=== PATIENT | female | born 1970 | race Caucasian/White ===

== ENCOUNTER 2019-04-25 21:24 | Emergency (ER) | payer MEDICAID, OTHER ==
[~2019-04-25] VITALS: Ht 162.6 cm; Wt 84.4 kg
[2019-04-25] MEDS: PLEASE ENTER ALLERGIES MC SCH ×2 (22:00→22:52)
[2019-04-25] MEDS ORDERED: KETOROLAC 30 MG/1 ML IM ONE (22:00)
[2019-04-25 22:06] LABS: MEAN CORPUSCULAR HEMOGLOBIN 30.4 pg (27.0-34.8); MEAN CORPUSCULAR HGB CONC 33.7 g/dL (32.4-35.8); MEAN CORPUSCULAR VOLUME 90.1 fL (80-100); MEAN PLATELET VOLUME 7.7 fL (7.4-10.4); PLATELET COUNT 223 x10^3/uL (130-400); RED BLOOD COUNT 4.96 x10^6/uL (3.82-5.3); RED CELL DISTRIBUTION WIDTH 12.9 % (9.6-15.2)
[2019-04-25 22:09] LABS: CULTURE INDICATED? YES; MICROSCOPIC INDICATED
[2019-04-25 22:12] LABS: HCG UR SG 1.025 (1.003-1.030)
[2019-04-25 22:19] LABS: ALANINE AMINOTRANSFERASE 23 U/L (12-78); ALBUMIN 3.8 g/dL (3.4-5.0); ANION GAP 9 mmol/L (5-15); CHLORIDE 104 mmol/L (98-107); CREATININE 0.86 mg/dL (0.55-1.02)
[2019-04-25 22:21] LABS: ALKALINE PHOSPHATASE 127 U/L (45-117); BILIRUBIN,TOTAL 1.2 mg/dL (0.2-1.0); TOTAL PROTEIN 8.1 g/dL (6.4-8.2)
[2019-04-25 22:31] LABS: BASOPHILS # (AUTO) 0.01 x10^3/uL (0-0.1); BASOPHILS % (AUTO) 0 % (0-1); EOSINOPHILS # (AUTO) 0.02 x10^3/uL (0-0.4); EOSINOPHILS % (AUTO) 0 % (1-7); LYMPHOCYTES % (AUTO) 3 % (22-44); MD SCAN; MONOCYTES # (AUTO) 0.12 x10^3/uL (0.2-0.8); MONOCYTES % (AUTO) 1 % (2-9); NEUTROPHILS % (AUTO) 96 % (42-75)
--- NOTE | 2019-04-25 22:48 | NUR ---
pt to room from lobby
[2019-04-25] MEDS ORDERED: KETOROLAC 60 MG/2 ML ONE (22:49)
[2019-04-25] MEDS ORDERED: CEFTRIAXONE PMX 1GM/50ML 50 ML ONE (23:08)
[2019-04-25] MEDS ORDERED: CEFTRIAXONE PMX 1GM/50ML 50 ML IV ONE (23:30)
[2019-04-25] MEDS ORDERED: SODIUM CHLORIDE 0.9% 1,000ML IVBOLUS ONE (23:30)
[2019-04-26] MEDS: PLEASE ENTER ALLERGIES MC SCH (01:15)
--- NOTE | 2019-04-26 01:35 | NUR ---
rn witnessed provider explain pt test results and how pt should be admited, pt denied and wanted to leave AMA.
[2019-04-26 01:37] VITALS: BP 105/76
== END 2019-04-26 01:40 | disposition left against medical advice (07) ==
LOC: ED 04-26 01:37
DX: A41.9 Sepsis, unspecified organism (principal); R65.20 Severe sepsis without septic shock; N13.2 Hydronephrosis with renal and ureteral calculous obstruction; N10 Acute pyelonephritis
CPT/HCPCS: 36415; 74176; 80053; 81001; 81025; 83605; 83690; 84145; 85025; 87040; 87077; 87086; 96372; 96374; 99291; J0696; J1885; J7030; 87186

== ENCOUNTER 2019-05-01 21:33 | Inpatient (IN) | payer MEDICAID ==
[~2019-05-01] VITALS: Ht 162.6 cm; Wt 82.8 kg
[2019-05-01 22:01] LABS: MICROSCOPIC AUTO
[2019-05-01 22:03] LABS: CULTURE INDICATED? YES
[2019-05-01 23:33] LABS: BASOPHILS # (AUTO) 0.08 x10^3/uL (0-0.1); BASOPHILS % (AUTO) 1 % (0-1); EOSINOPHILS # (AUTO) 0.29 x10^3/uL (0-0.4); EOSINOPHILS % (AUTO) 2 % (1-7); LYMPHOCYTES # (AUTO) 2.52 x10^3/uL (1-3.4); LYMPHOCYTES % (AUTO) 21 % (22-44); MD NO; MEAN CORPUSCULAR HEMOGLOBIN 29.8 pg (27.0-34.8); MEAN CORPUSCULAR HGB CONC 33.5 g/dL (32.4-35.8); MEAN CORPUSCULAR VOLUME 89.1 fL (80-100); MEAN PLATELET VOLUME 7.7 fL (7.4-10.4); MONOCYTES # (AUTO) 0.69 x10^3/uL (0.2-0.8); MONOCYTES % (AUTO) 6 % (2-9); NEUTROPHILS % (AUTO) 70 % (42-75); PLATELET COUNT 286 x10^3/uL (130-400); RED BLOOD COUNT 4.43 x10^6/uL (3.82-5.3); RED CELL DISTRIBUTION WIDTH 12.7 % (9.6-15.2)
[2019-05-01 23:39] LABS: ALANINE AMINOTRANSFERASE 30 U/L (12-78); ALBUMIN 3.4 g/dL (3.4-5.0); ANION GAP 9 mmol/L (5-15); CALCIUM 8.5 mg/dL (8.5-10.1); CHLORIDE 102 mmol/L (98-107); CREATININE 0.79 mg/dL (0.55-1.02)
[2019-05-01 23:41] LABS: ALKALINE PHOSPHATASE 112 U/L (45-117); BILIRUBIN,TOTAL 0.4 mg/dL (0.2-1.0); TOTAL PROTEIN 7.7 g/dL (6.4-8.2)
[2019-05-02] LABS: AMPHETAMINE SCREEN, URINE Negative (Negative); BARBITURATE SCREEN, URINE Negative (Negative); BENZODIAZEPINE SCREEN, URINE Negative (Negative); CANNABINOID SCREEN, URINE Negative (Negative); COCAINE SCREEN, URINE Negative (Negative); METHADONE SCREEN, URINE Negative (Negative); OPIATE SCREEN, URINE Negative (Negative)
[2019-05-02 01:08] LABS: MICROSCOPIC NOT IND
[2019-05-02 01:18] LABS: CULTURE INDICATED? NO
[2019-05-02] MEDS ORDERED: SODIUM CHLORIDE 0.9% 1,000ML IVBOLUS ONE (01:30)
[2019-05-02 03:23] VITALS: BP 124/80
[2019-05-02] MEDS ORDERED: ONDANSETRON 2MG/ML, 2ML IVPush PRN (03:30)
[2019-05-02] MEDS ORDERED: morphine SULFATE 10 MG/ML, 1ML IVPush PRN (03:30)
[2019-05-02] MEDS ORDERED: ACETAMINOPHEN 325 MG TABLET PO PRN (03:30)
[2019-05-02] MEDS: PIPERACILLIN/TAZO/PMX 3.375GM 50 ML IV SCH ×3 (03:45→15:09)
[2019-05-02] MEDS: INSULIN LISPRO 100 UNITS/ML, PEN SQ-INSULIN SCH ×3 (07:00→16:00)
[2019-05-02 07:43] VITALS: BP 95/61
[2019-05-02 15:12] VITALS: BP 110/63
== END 2019-05-02 18:12 | disposition left against medical advice (07) | DRG 872 ==
LOC: ED 22:45 → EDIP 05-02 02:02 → 3N 05-02 03:01
PROVIDERS: ADMIT Internal Medicine; ATTEND Hospitalist
PROC: 0T9B70Z Drainage of Bladder with Drainage Device, Via Natural or Artificial Opening (ICD-10-PCS; principal; 2019-05-02)
DX: A41.9 Sepsis, unspecified organism (principal); N13.6 Pyonephrosis; F17.200 Nicotine dependence, unspecified, uncomplicated; R65.20 Severe sepsis without septic shock; R73.9 Hyperglycemia, unspecified; Z53.29 Procedure and treatment not carried out because of patient's decision for other reasons; Z91.012 Allergy to eggs; Z91.018 Allergy to other foods
CPT/HCPCS: 36415; 76770; 80053; 80307; 81001; 81003; 82962; 83036; 83605; 84145; 85025; 87040; 87086; 99285; G0378; J2543; J7030

== ENCOUNTER → 2019-05-20 | Outpatient (CLI) | payer MEDICAID ==
[~2019-05-20] MED LIST: CEFD300C37 PO
[2019-05-20 11:09] LABS: BASOPHILS # (AUTO) 0.08 x10^3/uL (0-0.1); BASOPHILS % (AUTO) 1 % (0-1); EOSINOPHILS # (AUTO) 0.26 x10^3/uL (0-0.4); EOSINOPHILS % (AUTO) 2 % (1-7); LYMPHOCYTES # (AUTO) 2.16 x10^3/uL (1-3.4); LYMPHOCYTES % (AUTO) 17 % (22-44); MD NO; MEAN CORPUSCULAR HEMOGLOBIN 30.2 pg (27.0-34.8); MEAN CORPUSCULAR HGB CONC 33.4 g/dL (32.4-35.8); MEAN CORPUSCULAR VOLUME 90.2 fL (80-100); MEAN PLATELET VOLUME 7.9 fL (7.4-10.4); MONOCYTES # (AUTO) 0.82 x10^3/uL (0.2-0.8); MONOCYTES % (AUTO) 6 % (2-9); NEUTROPHILS # (AUTO) 9.65 x10^3/uL (1.8-6.8); NEUTROPHILS % (AUTO) 74 % (42-75); PLATELET COUNT 279 x10^3/uL (130-400); RED BLOOD COUNT 4.91 x10^6/uL (3.82-5.3); RED CELL DISTRIBUTION WIDTH 13.4 % (9.6-15.2)
[2019-05-20 11:13] LABS: INTERNATIONAL NORMALIZED RATIO 0.94 (0.93-1.1)
[2019-05-20 11:14] LABS: CALCIUM 8.7 mg/dL (8.5-10.1); CREATININE 1.06 mg/dL (0.55-1.02)
[2019-05-20 11:16] LABS: MICROSCOPIC AUTO
[2019-05-20 11:54] LABS: ANION GAP 9 mmol/L (5-15); CHLORIDE 102 mmol/L (98-107)
== END | disposition home or self-care (01) ==
LOC: STAR 09:34
PROVIDERS: ATTEND Student in an Organized Health Care Education/Training Program
DX: Z01.818 Encounter for other preprocedural examination (principal); N20.0 Calculus of kidney
CPT/HCPCS: 36415; 80048; 81001; 85025; 85610; 85730; 87077; 87086; 87186; 93005

== ENCOUNTER 2019-06-01 12:53 | Day surgery (SDC) | payer MEDICAID ==
[~2019-06-01] VITALS: Ht 162.6 cm; Wt 83.8 kg
[~2019-06-01 12:53] MED LIST changes: +CEFAZOLIN 1,000 MG ONE; +DEXAMETHASONE 4 MG/ML, 1ML ONE; +ONDANSETRON 2MG/ML, 2ML ONE
[2019-06-01 13:20] VITALS: BP 117/81
[2019-06-01] MEDS ORDERED: LACTATED RINGERS 1,000 ML IV SCH (13:22)
[2019-06-01 13:53] LABS: AMPHETAMINE SCREEN, URINE Negative (Negative); BARBITURATE SCREEN, URINE Negative (Negative); BENZODIAZEPINE SCREEN, URINE Negative (Negative); CANNABINOID SCREEN, URINE Negative (Negative); COCAINE SCREEN, URINE Negative (Negative); METHADONE SCREEN, URINE Negative (Negative); OPIATE SCREEN, URINE Negative (Negative)
[2019-06-01] MEDS ORDERED: FENTANYL PF 250 MCG/5ML ONE (15:23)
[2019-06-01] MEDS ORDERED: MIDAZOLAM 1 MG/ML, 2ML ONE (15:23)
[2019-06-01] MEDS ORDERED: PROPOFOL 50 ML ONE (15:23)
[2019-06-01] MEDS ORDERED: HYDROmorphone 2 MG/ML, 1ML IVPush PRN (16:00)
[2019-06-01] MEDS ORDERED: hydrALAzine 20 MG/ML, 1ML IV PRN (16:00)
[2019-06-01] MEDS ORDERED: DIAZEPAM 5 MG/ML, 2ML IVPush PRN (16:00)
[2019-06-01] MEDS ORDERED: ALBUTEROL/IPRATROPIUM 2.5MG/0.5MG, 3 ML NPPB PRN (16:00)
[2019-06-01] MEDS ORDERED: ONDANSETRON 2MG/ML, 2ML IV PRN (16:00)
[2019-06-01] MEDS ORDERED: METOPROLOL 1 MG/ML, 5ML IV PRN (16:00)
[2019-06-01] MEDS ORDERED: DIPHENHYDRAMINE 50 MG/ML, 1ML IVPush PRN (16:00)
[2019-06-01] MEDS ORDERED: OXYcodone 5 MG/5 ML ORAL.SOL UDC PO PRN (16:00)
[2019-06-01] MEDS ORDERED: EPHEDRINE 50 MG/ML, 1ML IVPush PRN (16:00)
[2019-06-01] MEDS ORDERED: ONDANSETRON ODT 8 MG PO PRN (16:00)
[2019-06-01] MEDS ORDERED: MIDAZOLAM 1 MG/ML, 2ML IV PRN (16:00)
[2019-06-01] MEDS ORDERED: MEPERIDINE/PF 25MG/ML,1ML IVPush PRN (16:00)
[2019-06-01] MEDS ORDERED: PROMETHAZINE 25 MG/ML, 1ML IV PRN (16:00)
[2019-06-01] MEDS ORDERED: EPHEDRINE 50 MG/ML, 1ML IM PRN (16:00)
[2019-06-01] MEDS ORDERED: PROPOFOL 10 MG/ML, 20ML ONE (16:06)
[2019-06-01] MEDS ORDERED: FENTANYL PF 100 MCG/2ML ONE (18:01)
[2019-06-01] MEDS ORDERED: OXYcodone 5 MG/5 ML ORAL.SOL UDC ONE (18:02)
[2019-06-01] MEDS: FENTANYL PF 100 MCG/2ML IV PRN ×2 (18:04→18:12)
[2019-06-01] MEDS ORDERED: HYDROmorphone 1 MG/ML, 1ML INJ ONE (18:46)
[2019-06-16] MEDS ORDERED: NONE PER PT (10:16)
== END 2019-06-01 21:12 | disposition home or self-care (01) ==
LOC: OUT 12:53
PROVIDERS: ATTEND Student in an Organized Health Care Education/Training Program
DX: N13.2 Hydronephrosis with renal and ureteral calculous obstruction (principal); Z79.899 Other long term (current) drug therapy
CPT/HCPCS: 52356; 74018; 76000; 80307; 82962; C1769; C2617; J0690; J1100; J1170; J2250; J2405; J2704; J3010; J7120

== ENCOUNTER → 2019-06-16 | Outpatient (CLI) | payer MEDICAID ==
[~2019-06-16] MED LIST changes: -CEFAZOLIN 1,000 MG ONE; -DEXAMETHASONE 4 MG/ML, 1ML ONE; +NONE PER PT; -ONDANSETRON 2MG/ML, 2ML ONE
[2019-06-16 10:44] LABS: BASOPHILS # (AUTO) 0.08 x10^3/uL (0-0.1); BASOPHILS % (AUTO) 1 % (0-1); EOSINOPHILS % (AUTO) 3 % (1-7); LYMPHOCYTES % (AUTO) 17 % (22-44); MD NO; MEAN CORPUSCULAR HEMOGLOBIN 29.8 pg (27.0-34.8); MEAN CORPUSCULAR HGB CONC 33.6 g/dL (32.4-35.8); MEAN CORPUSCULAR VOLUME 88.9 fL (80-100); MEAN PLATELET VOLUME 8.1 fL (7.4-10.4); MONOCYTES # (AUTO) 0.72 x10^3/uL (0.2-0.8); MONOCYTES % (AUTO) 5 % (2-9); NEUTROPHILS # (AUTO) 9.86 x10^3/uL (1.8-6.8); NEUTROPHILS % (AUTO) 74 % (42-75); PLATELET COUNT 293 x10^3/uL (130-400); RED BLOOD COUNT 5.01 x10^6/uL (3.82-5.3); RED CELL DISTRIBUTION WIDTH 13.1 % (9.6-15.2)
[2019-06-16 10:48] LABS: CULTURE INDICATED? YES; MICROSCOPIC INDICATED
[2019-06-16 10:53] LABS: ANION GAP 7 mmol/L (5-15); CALCIUM 8.3 mg/dL (8.5-10.1); CHLORIDE 106 mmol/L (98-107); CREATININE 0.73 mg/dL (0.55-1.02)
[2019-06-16 10:56] LABS: AMPHETAMINE SCREEN, URINE Negative (Negative); BARBITURATE SCREEN, URINE Negative (Negative); BENZODIAZEPINE SCREEN, URINE Negative (Negative); CANNABINOID SCREEN, URINE Negative (Negative); COCAINE SCREEN, URINE Negative (Negative); METHADONE SCREEN, URINE Negative (Negative); OPIATE SCREEN, URINE Negative (Negative)
== END | disposition home or self-care (01) ==
LOC: STAR 09:13
PROVIDERS: ATTEND Student in an Organized Health Care Education/Training Program
DX: Z01.818 Encounter for other preprocedural examination (principal); N20.0 Calculus of kidney
CPT/HCPCS: 36415; 80048; 80307; 81001; 83036; 85025; 87077; 87086; 87186

== ENCOUNTER 2019-06-22 13:35 | Day surgery (SDC) | payer MEDICAID ==
[~2019-06-22] VITALS: Ht 162.6 cm; Wt 83.0 kg
[2019-06-22 14:14] VITALS: BP 109/76
[2019-06-22] MEDS ORDERED: LACTATED RINGERS 1,000 ML IV SCH (14:17)
[2019-06-22 14:30] LABS: HCG UR SG 1.026 (1.003-1.030)
[2019-06-22] MEDS ORDERED: SCOPOLAMINE 1MG PATCH TD SCH (14:30)
[2019-06-22] MEDS ORDERED: ACETAMINOPHEN 500 MG TABLET PO ONE (14:30)
[2019-06-22] MEDS ORDERED: GABAPENTIN 300 MG CAPSULE PO ONE (14:30)
[2019-06-22 14:48] LABS: AMPHETAMINE SCREEN, URINE Negative (Negative); BARBITURATE SCREEN, URINE Negative (Negative); BENZODIAZEPINE SCREEN, URINE Negative (Negative); CANNABINOID SCREEN, URINE Negative (Negative); COCAINE SCREEN, URINE Negative (Negative); METHADONE SCREEN, URINE Negative (Negative); OPIATE SCREEN, URINE Negative (Negative)
[2019-06-22] MEDS ORDERED: MIDAZOLAM 1 MG/ML, 2ML ONE (15:02)
[2019-06-22] MEDS ORDERED: FENTANYL PF 250 MCG/5ML ONE (15:02)
[2019-06-22] MEDS ORDERED: HALOPERIDOL 5 MG/ML IV PRN (15:30)
[2019-06-22] MEDS ORDERED: hydrALAzine 20 MG/ML, 1ML IV PRN (15:30)
[2019-06-22] MEDS ORDERED: MORPHINE SULFATE 4 MG/ML, 1ML IVPush PRN (15:30)
[2019-06-22] MEDS ORDERED: PROMETHAZINE 25 MG/ML, 1ML IV PRN (15:30)
[2019-06-22] MEDS ORDERED: MEPERIDINE/PF 25MG/ML,1ML IVPush PRN (15:30)
[2019-06-22] MEDS ORDERED: LABETALOL 5MG/ML, 20ML IV PRN (15:30)
[2019-06-22] MEDS ORDERED: OXYcodone 5 MG/5 ML ORAL.SOL UDC PO PRN (15:30)
[2019-06-22] MEDS ORDERED: HYDROmorphone 2 MG/ML, 1ML IVPush PRN (15:30)
[2019-06-22] MEDS ORDERED: DEXAMETHASONE 4 MG/ML, 1ML ONE (15:56)
[2019-06-22] MEDS ORDERED: ROCURONIUM 10MG/ML,5ML ONE (15:56)
[2019-06-22] MEDS ORDERED: PROPOFOL 10 MG/ML, 20ML ONE (15:56)
[2019-06-22] MEDS ORDERED: ONDANSETRON 2MG/ML, 2ML ONE (15:56)
[2019-06-22] MEDS ORDERED: GLYCOPYRROLATE 0.2MG/1ML, 5ML ONE (15:56)
[2019-06-22] MEDS ORDERED: KETOROLAC 30 MG/1 ML ONE (15:56)
[2019-06-22] MEDS ORDERED: CEFAZOLIN 1,000 MG ONE (15:56)
[2019-06-22] MEDS ORDERED: NEOSTIGMINE 1 MG/ML, 10ML ONE (15:56)
[2019-06-22] MEDS ORDERED: OXYcodone 5 MG/5 ML ORAL.SOL UDC ONE (17:12)
[2019-06-22] MEDS ORDERED: FENTANYL PF 100 MCG/2ML ONE (17:15)
[2019-06-22] MEDS: FENTANYL PF 100 MCG/2ML IV PRN ×2 (17:16→17:25)
== END 2019-06-22 19:45 | disposition home or self-care (01) ==
LOC: OR 13:35 → 4NE 17:59 → OR 19:45
PROVIDERS: ATTEND Student in an Organized Health Care Education/Training Program
DX: N13.2 Hydronephrosis with renal and ureteral calculous obstruction (principal); E11.65 Type 2 diabetes mellitus with hyperglycemia; Z79.899 Other long term (current) drug therapy; Z91.012 Allergy to eggs; Z91.018 Allergy to other foods
CPT/HCPCS: 52353; 74018; 80307; 81025; 82360; 82962; 88300; C1769; J0690; J1100; J1885; J2250; J2405; J2704; J2710; J3010; J7120; 76000; G0378

== ENCOUNTER 2020-04-11 11:40 | Emergency (ER) | payer MEDICAID ==
[~2020-04-11] VITALS: Ht 154.9 cm; Wt 82.1 kg
--- NOTE | 2020-04-11 11:59 | NUR ---
PT HERE WITH C/O CHEST PAIN AND BILATERAL ARM PAIN THAT WOKE HER UP THIS MORNING AT 0600. DENIES TRAUMA.
[2020-04-11] MEDS ORDERED: ASPIRIN 81 MG TABLET CHEW ONE (12:29)
[2020-04-11] MEDS ORDERED: NITROGLYCERIN SINGLE TAB 0.4 MG SL ONE ×2 (12:29→12:30)
[2020-04-11] MEDS ORDERED: ASPIRIN 81 MG TABLET CHEW PO ONE (12:30)
[2020-04-11] MEDS ORDERED: SODIUM CHLORIDE FLUSH 10ML SYR IVF ONE (12:30)
[2020-04-11 12:38] LABS: BASOPHILS % (AUTO) 1 % (0-1); EOSINOPHILS % (AUTO) 1 % (1-7); LYMPHOCYTES % (AUTO) 15 % (22-44); MEAN CORPUSCULAR HEMOGLOBIN 30.9 pg (27.0-34.8); MEAN CORPUSCULAR HGB CONC 34.5 g/dL (32.4-35.8); MEAN PLATELET VOLUME 7.9 fL (7.4-10.4); MONOCYTES % (AUTO) 5 % (2-9); NEUTROPHILS % (AUTO) 79 % (42-75); PLATELET COUNT 252 x10^3/uL (130-400); RED BLOOD COUNT 4.86 x10^6/uL (3.82-5.3); RED CELL DISTRIBUTION WIDTH 12.9 % (9.6-15.2)
[2020-04-11 12:43] LABS: ALBUMIN 3.5 g/dL (3.4-5.0); ANION GAP 11 mmol/L (5-15); CALCIUM 8.7 mg/dL (8.5-10.1); CHLORIDE 100 mmol/L (98-107)
[2020-04-11 12:47] LABS: ALKALINE PHOSPHATASE 152 U/L (45-117); BILIRUBIN,TOTAL 0.8 mg/dL (0.2-1.0); TOTAL PROTEIN 7.4 g/dL (6.4-8.2); TROPONIN I < 0.015 ng/mL (0.000-0.045)
[2020-04-11 12:56] LABS: MD NO
[2020-04-11 13:04] LABS: ALANINE AMINOTRANSFERASE 32 U/L (12-78)
[2020-04-11 13:38] VITALS: BP 122/79
--- NOTE | 2020-04-11 14:17 | NUR ---
ERMD IN TO UPDATE PT ON POC, PT WANTS TO LEAVE AMA
== END 2020-04-11 15:29 ==
LOC: ED 13:05
DX: R07.89 Other chest pain (principal); E87.1 Hypo-osmolality and hyponatremia; R73.9 Hyperglycemia, unspecified
CPT/HCPCS: 36415; 71045; 80053; 83880; 84484; 85025; 85379; 93005; 99285